=== PATIENT | male | born 1985 | race Caucasian/White ===

== ENCOUNTER 2016-04-15 15:59 | Emergency (ER) | payer OTHER ==
[2016-04-15 16:05] VITALS: BP 157/82; PULSE 107; TEMP 98.3; BMI 26.2
[2016-04-15] MEDS ORDERED: KETOROLAC TROMETHAMINE 60 MG/2 ML VIAL IM ONE (18:28)
[2016-04-15] MEDS ORDERED: KETOROLAC TROMETHAMINE 60 MG/2 ML VIAL ONE (18:31)
--- NOTE | 2016-04-15 18:44 | PDOC ---
History of Present Illness - General Chief Complaint: Injury Stated Complaint: FALL, LT ANKLE PAIN Time Seen by Provider: 04/15/16 16:39 History Source: Patient Exam Limitations: No Limitations - History of Present Illness Initial Comments: 04/15/16 18:39 twisted knee while playing with friend x 2 days ago and fell Occurred: reports: other (2 days ago) Severity: reports: mild Pain Location: reports: lower extremity. denies: none Method of Injury: Yes: direct blow Past History - Past Medical History Allergies/Adverse Reactions: Allergies Allergy/AdvReac Type Severity Reaction Status Date / Time No Known Allergies Allergy Verified 04/15/16 16:01 Home Medications: Ambulatory Orders NK [No Known Home Medication] 04/15/16 Other medical history: none - Immunization History Td Vaccination: No - Psycho/Social/Smoking Cessation Hx Anxiety: Yes Suicidal Ideation: No Smoking Status: No Smoking History: Current every day smoker Have you smoked in the past 12 months: Yes Number of Cigarettes Smoked Daily: 10 Information on smoking cessation initiated: Yes 'Breaking Loose' booklet given: 04/15/16 Hx Alcohol Use: No Drug/Substance Use Hx: No Review of Systems - Review of Systems Constitutional: No: Chills, Fever, Malaise Respiratory: No: Symptoms reported, Cough Cardiac (ROS): No: Symptoms Reported ABD/GI: No: Symptoms Reported : No: Symptoms Reported Musculoskeletal: Yes: Joint Pain. No: Joint Swelling Integumentary: No: Symptoms Reported *Physical Exam - Vital Signs Last Vital Signs Temp Pulse Resp BP Pulse Ox 98.3 F 107 H 18 157/82 100 04/15/16 16:03 04/15/16 16:03 04/15/16 16:03 04/15/16 16:03 04/15/16 16:03 - Physical Exam General Appearance: Yes: Apparent Distress. No: Appropriately Dressed HEENT: negative: TMs Normal, Pharynx Normal Neck: positive: Supple. negative: Tender, Rigid Respiratory/Chest: negative: Lungs Clear Musculoskeletal: positive: Other (tender to area medial knee, mild STS; pt very apprehensive to any movement; no obvious joint laxity) ED Treatment Course - RADIOLOGY Radiology Studies Ordered: Category Date Time Status KNEE 3 POS-LEFT [RAD] Stat Radiology 04/15/16 16:56 Completed Medical Decision Making - Medical Decision Making 04/15/16 18:41 04/15/16 18:44 will treat as a mild MCL strain *DC/Admit/Observation/Transfer Diagnosis at time of Disposition: Strain of right knee and leg Qualifiers: Encounter type: initial encounter Qualified Code(s): S86.911A - Strain of unspecified muscle(s) and tendon(s) at lower leg level, right leg, initial encounter - Discharge Dispostion Disposition: HOME Condition at time of disposition: Stable Admit: No - Patient Instructions Additional Instructions: wear splint x 2-3 days and use crutches and see dr reyes in office this week - Post Discharge Activity Work/School Note: Back to Work
== END 2016-04-15 19:03 | disposition home or self-care (01) ==
LOC: JERFT 15:59
PROC: 3E0233Z Introduction of Anti-inflammatory into Muscle, Percutaneous Approach (ICD-10-PCS; principal; 2016-04-15)
DX: S86.911A Strain of unspecified muscle(s) and tendon(s) at lower leg level, right leg, initial encounter (principal); X50.1XXA Overexertion from prolonged static or awkward postures, initial encounter; Y93.83 Activity, rough housing and horseplay; Y92.89 Other specified places as the place of occurrence of the external cause; Y99.8 Other external cause status
CPT/HCPCS: 73562-TC-LT; 96372; 99281-25

== ENCOUNTER 2016-06-19 17:19 | Emergency (ER) | payer OTHER ==
[2016-06-19] MEDS ORDERED: AMPICILLIN NA/SULBACTAM NA 3 GM in SODIUM CHLORIDE 100 ML IVPB ONE (17:29)
[2016-06-19] MEDS ORDERED: DIPHTH,PERTUSS(ACELL),TET 0.5 ML DISP.SYRIN IM ONE (17:29)
[2016-06-19] MEDS ORDERED: SODIUM CHLORIDE 1,000 ML IV STA (17:33)
--- NOTE | 2016-06-19 17:33 | PDOC ---
History of Present Illness - General History Source: Patient, Old Records Exam Limitations: No Limitations - History of Present Illness Initial Comments: 06/19/16 17:39 The patient is a 30 year old male, with no significant past medical history, who presents to the emergency department with a laceration to the 3rd knuckle of his right hand, pain to the right upper extremity and pain to the 3rd digit of the left hand s/p a dog attack just prior to presentation to the ED. The patient states that he was at the dog park with his dog when an unknown dog attacked his dog. The patient reports that he intervened in order to break up the dog fight and sustained his injuries in the process. The patient checked the unknown dogs rabies collar and reports that the unknown dog is up to date with its rabies vaccinations. The patient additionally reports that his dog is up to date with its rabies vaccinations. The patient then immediately proceeded to the ED for further evaluation. The patient denies any other trauma or injury. The patient is left hand dominant. Date of last Tetanus is unknown. Allergies: None reported. Past Surgical History: None reported. Social History: Current everyday smoker. Reports alcohol use. Denies drug use. <Vannessa Jefferson - Last Filed: 06/19/16 18:34> - General History Source: Patient, Old Records Exam Limitations: No Limitations <Divya Aguilar - Last Filed: 06/19/16 19:20> - General Chief Complaint: Bite Stated Complaint: DOG BITES Time Seen by Provider: 06/19/16 17:28 Past History <Vannessa Jefferson - Last Filed: 06/19/16 18:34> - Immunization History Td Vaccination: No - Psycho/Social/Smoking Cessation Hx Anxiety: Yes Suicidal Ideation: No Smoking Status: No Smoking History: Current every day smoker Have you smoked in the past 12 months: Yes Number of Cigarettes Smoked Daily: 10 'Breaking Loose' booklet given: 04/15/16 Hx Alcohol Use: No Drug/Substance Use Hx: No <Divya Aguilar - Last Filed: 06/19/16 19:20> - Past Medical History Allergies/Adverse Reactions: Allergies Allergy/AdvReac Type Severity Reaction Status Date / Time No Known Allergies Allergy Verified 06/19/16 17:20 Home Medications: Ambulatory Orders Amoxicillin/Potassium Clav [Augmentin 875-125 Tablet] 1 each PO BID #20 tablet 06/19/16 Review of Systems - Review of Systems Able to Perform ROS?: Yes Comments:: 06/19/16 17:42 GENERAL/CONSTITUTIONAL: No fever or chills. No weakness. HEAD, EYES, EARS, NOSE AND THROAT: No change in vision. No ear pain or discharge. No sore throat. CARDIOVASCULAR: No chest pain or shortness of breath. RESPIRATORY: No cough, wheezing, or hemoptysis. GASTROINTESTINAL: No nausea, vomiting, diarrhea or constipation. GENITOURINARY: No dysuria, frequency, or change in urination. MUSCULOSKELETAL: +Pain to the right upper extremity, pain to the 3rd digit of the left hand. No joint or muscle swelling. No neck or back pain. SKIN: +Laceration to the 3rd knuckle of the right hand. No rash. NEUROLOGIC: No headache, vertigo, loss of consciousness, or change in strength/ sensation. ENDOCRINE: No increased thirst. No abnormal weight change. HEMATOLOGIC/LYMPHATIC: No anemia, easy bleeding, or history of blood clots. ALLERGIC/IMMUNOLOGIC: No hives or skin allergy. <Vannessa Jefferson - Last Filed: 06/19/16 18:34> *Physical Exam - Vital Signs Last Vital Signs Temp Pulse Resp BP Pulse Ox 98.3 F 79 18 128/68 99 06/19/16 17:20 06/19/16 17:20 06/19/16 17:20 06/19/16 17:20 06/19/16 17:20 - Physical Exam Comments: 06/19/16 17:51 GENERAL: Awake, alert, and fully oriented, in no acute distress. HEAD: No signs of trauma. EYES: PERRLA, EOMI, sclera anicteric, conjunctiva clear. ENT: Auricles normal inspection, hearing grossly normal, nares patent, oropharynx clear without exudates. Moist mucosa. NECK: Normal ROM, supple, no lymphadenopathy, JVD, or masses. LUNGS: Breath sounds equal, clear to auscultation bilaterally. No wheezes, and no crackles. HEART: Regular rate and rhythm, normal S1 and S2, no murmurs, rubs or gallops. ABDOMEN: Soft, nontender, normoactive bowel sounds. No guarding, no rebound. No masses. MUSCULOSKELETAL: Left hand is tender to palpation at the distal phalanx with no skin breakage, neurovascularly intact. EXTREMITIES: Normal range of motion, no edema. No clubbing or cyanosis. No cords , erythema, or tenderness. NEUROLOGICAL: Cranial nerves II through XII intact. Normal speech, normal gait. SKIN: 1 cm laceration to the 3rd knuckle of the right hand, full ROM of the right hand with no active bleeding, neurovascularly intact. Right tricep region , there is ecchymosis and a small hematoma with no skin breakage. Warm, dry, normal turgor, no rashes noted. <Vannessa Jefferson - Last Filed: 06/19/16 18:34> Medical Decision Making - Medical Decision Making 06/19/16 17:30 30-year-old male who presents to the emergency department with a laceration to his right hand, pain to his left middle digit and pain to his right upper arm status post attacked by a dog. Repeat vaccine is up-to-date. Plan: 1. Plain films to rule out underlying fracture 2. Tetanus 3. Unasyn 4. No suture repair as this wound will be prone to infection 5. Will discharge on prophylactic antibioticsAugmentin 875 mg twice a day 10 days, wound check in 2 days, and I will advise the patient to return to the emergency department if the wound appears red, swollen, purulent drainage or any other signs of infection. 6. No rabies vaccination or prophylaxis as the patient says that he is certain that the animal who bit him was UTD with all vaccinations. 06/19/16 18:12 Addendum: The patient refused plain films stating that he felt that nothing was broken and since he would be paying out of pocket for the ER visit he did not want X-rays. I explained in detail the benefits to identifyication of a fracture in this clinical setting as well as the consequences of having undiagnosed fx. He understood and was willing to assume those risks. <Divya Aguilar - Last Filed: 06/19/16 19:20> *DC/Admit/Observation/Transfer - Attestations Scribe Attestion: 06/19/16 17:35 Documentation prepared by Vannessa Jefferson, acting as medical billing representative for Divya Aguilar MD. <Vannessa Jefferson - Last Filed: 06/19/16 18:34> - Discharge Dispostion Admit: No - Attestations Physician Attestion: 06/19/16 17:32 I, Dr. Divya Aguilar, attest that the scribes documentation that appears above has been prepared under my direction and personally reviewed by me in its entirety. I confirmed that the note above accurately reflects all work, treatment, procedures, and medical decision-making performed by me. <Divya Aguilar - Last Filed: 06/19/16 19:20> Diagnosis at time of Disposition: Laceration of right hand, Contusion of arm, right - Discharge Dispostion Disposition: HOME Condition at time of disposition: Stable - Prescriptions Prescriptions: Amoxicillin/Potassium Clav [Augmentin 875-125 Tablet] 1 each PO BID #20 tablet - Patient Instructions Printed Discharge Instructions: How to Care for a Domestic Animal Bite, DI for Animal Bites Additional Instructions: You have sustained a dog bite to your hand. These wounds are notoriously prone to infection and therefore you must take antibitoics to prevent this from occurring. In addition, your wound was purposefully not sutured and should be left to heal on its own. You have received an intravenous dose of antibiotics in the ED and are being prescribed Augmentin 875-take one tablet twice daily for 10 days. Please return to the ED or go to your primary care physician in 2 days so that you may have your wound re-examined for signs of infection. Please return to the ED sooner if you notice that the wound appears reddened, more swollen, purulent drainage from the wound, fever, difficulty moving your fingers or any other concerning signs or symptoms.
[2016-06-19 17:34] VITALS: BP 128/68; PULSE 79; TEMP 98.3; BMI 25.7
[2016-06-19] MEDS ORDERED: AMPICILLIN NA/SULBACTAM NA 3 GM VIAL ONE (17:55)
== END 2016-06-19 19:27 | disposition home or self-care (01) ==
LOC: FER 17:19
PROC: 3E03329 Introduction of Other Anti-infective into Peripheral Vein, Percutaneous Approach (ICD-10-PCS; principal; 2016-06-19)
PROC: 3E0337Z Introduction of Electrolytic and Water Balance Substance into Peripheral Vein, Percutaneous Approach (ICD-10-PCS; 2016-06-19)
PROC: 3E0234Z Introduction of Serum, Toxoid and Vaccine into Muscle, Percutaneous Approach (ICD-10-PCS; 2016-06-19)
DX: S61.213A Laceration without foreign body of left middle finger without damage to nail, initial encounter (principal); S61.253A Open bite of left middle finger without damage to nail, initial encounter; W54.0XXA Bitten by dog, initial encounter; Y93.89 Activity, other specified; Y92.830 Public park as the place of occurrence of the external cause
CPT/HCPCS: 90471; 90715; 96361; 96365; 99282-25

== ENCOUNTER 2016-09-07 10:56 | Emergency (ER) | payer OTHER ==
[2016-09-07 11:04] VITALS: BP 137/80; PULSE 111; TEMP 97.8; BMI 26.4
[2016-09-07] MEDS ORDERED: OXYCODONE/APAP 5/325MG COMBO TABLET PO ONE (12:16)
--- NOTE | 2016-09-07 12:24 | PDOC ---
History of Present Illness - General Chief Complaint: Pain, Acute Stated Complaint: RT ARM INJURY Time Seen by Provider: 09/07/16 11:48 History Source: Patient Exam Limitations: No Limitations - History of Present Illness Initial Comments: 09/07/16 14:27 My chief complaint: Fall last night down stairs has pain above rt. TMJ, rt. elbow, rt hand with swelling and bruising, laceration rt. ear History of present illness: Patient is a 31-year-old male with no significant medical history here today after falling down the stairs last night when he was running after his dog that was trying to run out of the house falling forward patient hit the right side of his head right elbow and right wrist and hand. Patient denies any loss consciousness, any change in vision level of alertness dizziness hemotympanum nausea or vomiting. Patient has swelling to his right elbow and right hand over first and second metacarpal area with bruising. Patient has full range of motion of all digits except for the thumb laterally. Patient is unable to straighten his right elbow totally. Patient is up-to-date with tetanus. Patient reports the pain is worse in his right elbow and is currently an 8 out of 10 pain in right elbow worsens when trying to straighten it or with movement of his right hand. Patient is right hand dominant. Patient denies any numbness of his right arm elbow area or hand. Patient reports having slight pain to his area right above his right TMJ with opening of his mouth however is able to open mouth fully and does not have any trismus. Patient has a superficial laceration to his right helix of the ear. He denies any neck pain , back pain, or any other injuries.Pt.is left hand dominant 09/07/16 14:31 09/07/16 23:09 Occurred: reports: yesterday Severity: reports: moderate (slightly superior to rt. TMJ pain ), severe (right elbow, right wrist, hand) Pain Location: reports: face (superior to rt. TMG), upper extremity (rt. elbow, rt. medial wrist, hand rt. thumb, rt. 1st mcp jt, 2nd mcpt jt, scaphoid, trapezoid, trapezium ) Method of Injury: Yes: fall Modifying Factors: improves with: None Loss of Consciousness: no loss of consciousness Associated Symptoms (Fall): other (pain superior to rt. TMJ) Past History - Past Medical History Allergies/Adverse Reactions: Allergies Allergy/AdvReac Type Severity Reaction Status Date / Time No Known Allergies Allergy Verified 09/07/16 11:04 Home Medications: Ambulatory Orders Oxycodone HCl/Acetaminophen [Percocet 5-325 mg Tablet] 1 tab PO Q6H PRN #11 tablet MDD 4 09/07/16 - Immunization History Td Vaccination: No Immunization Up to Date: No - Psycho/Social/Smoking Cessation Hx Anxiety: Yes Suicidal Ideation: No Smoking Status: No Smoking History: Current every day smoker Have you smoked in the past 12 months: Yes Number of Cigarettes Smoked Daily: 10 Information on smoking cessation initiated: Yes 'Breaking Loose' booklet given: 09/07/16 Hx Alcohol Use: No Drug/Substance Use Hx: No Substance Use Type: Alcohol Review of Systems - Review of Systems Able to Perform ROS?: Yes Constitutional: No: Symptoms Reported HEENTM: No: Symptoms Reported Respiratory: No: Symptoms reported Cardiac (ROS): No: Symptoms Reported ABD/GI: No: Symptoms Reported : No: Symptoms Reported Musculoskeletal: Yes: Joint Pain (rt. elbow, rt. 1st, 2nd metacarpa rt thumb , rt. scaphoid, trapezoid, trapezium, superior to rt. TMJ,), Joint Swelling (rt. elbow, rt. 1st, 2nd metacarpal, rt.hand over scaphoid, trapezoid, trapezium) Integumentary: Yes: Bruising (rt. hand dorsal and palm over medial aspect), Other (superficial laceration rt. helix superfical ) Neurological: No: Symptoms reported *Physical Exam - Vital Signs Last Vital Signs Temp Pulse Resp BP Pulse Ox 97.8 F 111 H 20 137/80 96 09/07/16 10:59 09/07/16 10:59 09/07/16 10:59 09/07/16 10:59 09/07/16 10:59 - Physical Exam General Appearance: Yes: Appropriately Dressed HEENT: positive: EOMI, PHIL, Normal ENT Inspection, Other (no trismus) Neck: negative: Tender, Lymphadenopathy (R), Lymphadenopathy (L), Rigidity, Tender lateral, Tender midline Respiratory/Chest: positive: Lungs Clear, Normal Breath Sounds. negative: Chest Tender, Respiratory Distress Cardiovascular: positive: Regular Rhythm, Regular Rate, S1, S2 Comments:: 09/07/16 12:34 rt. radial pulse 2+ Musculoskeletal: positive: Normal Inspection, Other (tender proximal to rt. TMJ) . negative: CVA Tenderness, CVA Tenderness (R), CVA Tenderness (L), Decreased Range of Motion, Vertebral Tenderness Extremity: positive: Normal Capillary Refill, Tender (rt. elbow, rt. dorsal, palmar hand over 1st, 2nd metacarpal, rt. thumb, rt hand over scaphoid, trapezium, trapezoid, rt. elbow ), Swelling. negative: Normal Inspection (rt. hand medial aspect swelling over 1st and 2nd metacarpal, over rt scaphoid, trapezois, trapezium, and bruising dorsal and palmar aspect), Normal Range of Motion (rt. elbow and rt. thumb decreased range of motion with flexion and extension ) Integumentary: positive: Ecchymosis (rt. hand dorsal/plantar aspect over 1st, 2nd mcp jt, rt. thumb, rt. scaphoid, trapezoid, trapezium) Neurologic: positive: Normal Response, Respond to painful stimul (rt. hand all digits, rt. elbow ), Other (decreased motor strength rt. elbow, rt. hand ). negative: Numbness, Sensory Deficit (rt.upper, elbow, forearm, rt. hand and all digits) Procedures - Consent Consent obtained: From Patient - Splinting Splint Location: Left: Forearm Pre-Proc Neuro Vasc Exam: normal Hand-Made Type: orthoglass Splint Type: Yes: Short Arm (right) Post-Proc Neuro Vasc Exam: normal Luciano Bandage: 3" Sling: Yes (right ) - Laceration/Wound Repair Right Ear Wound Length: to 2.5 cm Wound Explored: clean Wound's Depth, Shape: linear Irrigated w/ Saline: Yes Betadine Prep: Yes Wound Repaired With: Dermabond (right helix superfical ) Number of Sutures: 0 ED Treatment Course - RADIOLOGY Radiology Studies Ordered: Category Date Time Status ELBOW-RIGHT [RAD] Stat Radiology 09/07/16 12:16 Ordered FOREARM- RIGHT [RAD] Stat Radiology 09/07/16 12:16 Ordered WRIST W/HAND-RIGHT* [RAD] Stat Radiology 09/07/16 12:16 Ordered Medical Decision Making - Medical Decision Making 09/07/16 14:31 Patient is a 31-year-old male with no significant medical history here today after falling down the stairs last night when he was running after his dog that was trying to run out of the house falling forward patient hit the right side of his head right elbow and right wrist and hand. Patient denies any loss consciousness, any change in vision level of alertness dizziness hemotympanum nausea or vomiting. Patient has swelling to his right elbow and right hand over first and second metacarpal area with bruising. Patient has full range of motion of all digits except for the thumb laterally. Patient is unable to straighten his right elbow totally. Patient is up-to-date with tetanus. Patient reports the pain is worse in his right elbow and is currently an 8 out of 10 pain in right elbow worsens when trying to straighten it or with movement of his right hand. Patient is right hand dominant. Patient denies any numbness of his right arm elbow area or hand. Patient reports having slight pain to his area right above his right TMJ with opening of his mouth however is able to open mouth fully and does not have any trismus. Patient has a superficial laceration to his right helix of the ear. He denies any neck pain, back pain, or any other injuries. R/O facial fracture R/O rt. elbow fracture R/O rt. wrist/hand fracture Fall on stairs rt. ear helix superfical laceration rt. elbow contusion rt. hand contusion PLAN: Xray rt. wrist/hand no fracture noted per Dr. Wray Xray rt. elbow no fracture noted per Dr. Wray Xray rt. forearm negative for fracture laceration rt. ear helix follow up with orthopedist CT without contrast of face no fracture noted per verbal from Dr. Cervantes percocet 5mg/325 mg po now than every 6 hrs prn pain # 11 posterior orthoglass splint applied rt. arm, sling applied 09/07/16 15:41 Search Terms: art Hatch, 1985 Search Date: 09/07/2016 03:51:03 PM T This report was requested by: Jacquelyn Machado | Reference #: [id number] Others' Prescriptions Patient Name: Art Hatch Date: 1985 Address: [address] [place] [address] Sex: Male Rx Written Rx Dispensed Drug Quantity Days Supply Prescriber Name 01/25/2016 01/25/2016 dextroamp-amphet er 10 mg cap 30 30 Melissa Gavin MD 01/25/2016 01/25/2016 dextroamp-amphet er 30 mg cap 30 30 Romaine, *DC/Admit/Observation/Transfer Diagnosis at time of Disposition: Face pain Contusion of elbow, right Qualifiers: Encounter type: initial encounter Qualified Code(s): S50.01XA - Contusion of right elbow, initial encounter Contusion of hand Qualifiers: Encounter type: initial encounter Laterality: right Qualified Code(s): S60.221A - Contusion of right hand, initial encounter Laceration of external ear Qualifiers: Encounter type: initial encounter Laterality: right Qualified Code(s): S01.311A - Laceration without foreign body of right ear, initial encounter Fall Qualifiers: Encounter type: initial encounter Qualified Code(s): W19.XXXA - Unspecified fall, initial encounter - Discharge Dispostion Disposition: HOME Condition at time of disposition: Stable - Prescriptions Prescriptions: Oxycodone HCl/Acetaminophen [Percocet 5-325 mg Tablet] 1 tab PO Q6H PRN #11 tablet MDD 4 PRN Reason: Severe Pain - Referrals Referrals: Mackenzie Stanton MD [Primary Care Provider] - Kristofer French MD [Staff Physician] - - Patient Instructions Additional Instructions: Continue to apply ice to right elbow and right hand every hour for 10-15 minutes while awake today and tomorrow keep Ortho-Glass splint on right arm and use sling take sling off at night and elevate arm on pillow X-rays today of right elbow forearm and hand were negative for fractures Your cat scan of face was negative for any facial fractures Follow-up with orthopedist in 2 days for further evaluation You may take ibuprofen as needed as directed by degreasing solution reclaimer for pain Return to emergency room if any numbness of right arm hand worsening pain or if any severe headache nausea, vomiting, change in vision or level of alertness Patient voiced understanding of discharge instructions and all questions were answered - Post Discharge Activity Work/School Note: Back to Work
[2016-09-07] MEDS ORDERED: OXYCODONE/APAP 5/325MG COMBO TABLET ONE (12:27)
== END 2016-09-07 16:07 | disposition home or self-care (01) ==
LOC: JERFT 10:56
PROC: 2W3CX1Z Immobilization of Right Lower Arm using Splint (ICD-10-PCS; principal; 2016-09-07)
DX: S01.311A Laceration without foreign body of right ear, initial encounter (principal); S50.01XA Contusion of right elbow, initial encounter; S60.221A Contusion of right hand, initial encounter; R51 Headache
CPT/HCPCS: 29105; 70486-TC; 73070-TC-RT; 73090-TC-RT; 73110-TC-RT; 73130-TC-RT; 99281-25

== ENCOUNTER 2017-07-06 17:10 | Emergency (ER) | payer SELFPAY ==
[2017-07-06 17:26] VITALS: BP 163/80; PULSE 80; TEMP 98; BMI 26.4
[2017-07-06] MEDS ORDERED: KETOROLAC TROMETHAMINE 60 MG/2 ML VIAL IM ONE (17:48)
[2017-07-06] MEDS ORDERED: diazePAM 5 MG TABLET PO ONE (17:48)
[2017-07-06] MEDS ORDERED: diazePAM 5 MG TABLET ONE (17:51)
[2017-07-06] MEDS ORDERED: KETOROLAC TROMETHAMINE 60 MG/2 ML VIAL ONE (17:51)
--- NOTE | 2017-07-06 17:54 | PDOC ---
History of Present Illness - General History Source: Patient Exam Limitations: No Limitations - History of Present Illness Initial Comments: 07/06/17 19:18 The patient is a 31 year old male, with no significant past medical history, who presents to the emergency department with, 2 days of lower back pain. As per patient, his job involves a lot of lifting, while doing so he reports hearing a pop in his lower back which was accompanied by significant pain. He describes his pain as spastic, and localized to the lumbar region of his back and occasionally radiating up his back. No radiation down his legs. Secondary to his symptoms, he reports difficulty ambulating due to the pain. He reports taking 600mg of Ibuprofen at 10am, with minimal relief. He reports injuring the same area of his back in the remote past. He denies any recent fevers, chills, headache or dizziness. He denies any recent nausea, vomit, diarrhea or constipation. He denies any recent chest pain or shortness of breath. He denies any recent dysuria, frequency, urgency or hematuria. No urinary or bow3el incontinence. Allergies: NKA Past surgical history: None reported. Social History: Current smoker (5 cigarettes per day). Denies EtOH use and recreational drug use. Primary Care Physician: Dr. Mackenzie Stanton <Noe Londono - Last Filed: 07/06/17 19:18> <Silvestre Garcia - Last Filed: 07/10/17 09:12> - General Chief Complaint: Back Pain Stated Complaint: RIGHT LOWER BACK PAIN Time Seen by Provider: 07/06/17 17:29 Past History <Noe Londono - Last Filed: 07/06/17 19:18> - Past Medical History COPD: No - Immunization History Td Vaccination: No Immunization Up to Date: No - Suicide/Smoking/Psychosocial Hx Smoking Status: No Smoking History: Current every day smoker Have you smoked in the past 12 months: Yes Number of Cigarettes Smoked Daily: 10 Information on smoking cessation initiated: Yes 'Breaking Loose' booklet given: 07/06/17 Hx Alcohol Use: No Drug/Substance Use Hx: No Substance Use Type: None <Silvestre Garcia - Last Filed: 07/10/17 09:12> - Past Medical History Allergies/Adverse Reactions: Allergies Allergy/AdvReac Type Severity Reaction Status Date / Time No Known Allergies Allergy Verified 07/06/17 17:20 Home Medications: Ambulatory Orders Diclofenac Sodium [Voltaren -] 75 mg PO BID PRN #20 tablet. 07/06/17 Oxycodone HCl/Acetaminophen [Percocet 5-325 mg Tablet] 1 tab PO Q6H PRN #12 tablet MDD 4 tabs 07/06/17 Tizanidine HCl 2 mg PO TID PRN #20 tablet 07/07/17 Review of Systems - Review of Systems Able to Perform ROS?: Yes Comments:: 07/06/17 19:18 CONSTITUTIONAL: No reported: Fever, Chills, Diaphoresis, Generalized Weakness, Malaise, Loss of Appetite HEENT: No reported: Rhinorrhea, Nasal Congestion, Throat Pain, Throat Swelling, Difficulty Swallowing, Mouth Swelling, Ear Pain, Eye Pain, Visual Changes CARDIOVASCULAR: No reported: Chest Pain, Syncope, Palpitations, Irregular Heart Rate, Lightheadedness, Peripheral Edema RESPIRATORY: No reported: Cough, Shortness of Breath, SOB with Exertion, Orthopnea, Wheezing , Stridor, Hemoptysis GASTROINTESTINAL: No reported: Abdominal pain, Abdominal Distension, Nausea, Vomiting, Diarrhea, Constipation, Melena, Hematochezia GENITOURINARY: No reported: Dysuria, Frequency, Urgency, Hesitancy, Flank Pain, Genital Pain MUSCULOSKELETAL: Lower back pain. No reported: Myalgia, Arthralgia, Joint Swelling, Neck Pain SKIN: No reported: Rash, Itching, Pallor HEMEATOLOGIC/IMMUNOLOGIC: No reported: Easy Bleeding, Easy Bruising, Lymphadenopathy, Frequent infections ENDOCRINE: No reported: Unexplained Weight Gain, Unexplained Weight Loss, Heat Intolerance , Cold Intolerance NEUROLOGIC: No reported: Headache, Focal Weakness, Paresthesias, Vertigo, Lightheadedness, Unsteady Gait, Seizure, Mental Status Changes, Incontinence PSYCHIATRIC: No reported: Anxiety, Depression All Other Systems: Reviewed and Negative <Noe Londono - Last Filed: 07/06/17 19:18> *Physical Exam - Vital Signs Last Vital Signs Temp Pulse Resp BP Pulse Ox 98.0 F 80 16 163/80 100 07/06/17 17:13 07/06/17 17:13 07/06/17 17:13 07/06/17 17:13 07/06/17 17:13 - Physical Exam Comments: 07/06/17 19:19 GENERAL: The patient is awake and alert,, Nontoxic - in no acute distress. HEAD: Normocephalic, atraumatic. EYES: extraocular movements intact, sclera anicteric, conjunctiva clear. ENT: Normal voice, Moist mucous membranes. NECK: Normal range of motion, supple LUNGS: Breath sounds equal, clear to auscultation bilaterally. No wheezes, no rhonchi, no rales. HEART: Regular rate and rhythm, without murmur, rub or gallop. ABDOMEN: Soft, nontender, No guarding, no rebound.No CVA tenderness BACK: No focal midlinne tenderness, mild diffuse lower back tenderness, +spasms/ hypertrophy of R lower back EXTREMITIES: Normal range of motion, no edema. No cyanosis. No erythema, or tenderness. NEUROLOGICAL: No facial asymmetry, Normal speech, hip flexion/extension, platnar flexion/extension, sensation intact/symmetric in the lower extremities. PSYCH: Normal mood, normal affect. SKIN: Warm, Dry, normal turgor, <Noe Londono - Last Filed: 07/06/17 19:18> - Vital Signs Last Vital Signs Temp Pulse Resp BP Pulse Ox 98.0 F 80 16 163/80 100 07/06/17 17:13 07/06/17 17:13 07/06/17 17:13 07/06/17 17:13 07/06/17 17:13 <Silvestre Garcia - Last Filed: 07/10/17 09:12> ED Treatment Course - Medications Given in the ED: ED Medications Discontinued Medications Generic Name Dose Route Start Last Admin Trade Name Freq PRN Reason Stop Dose Admin Acetaminophen 975 mg 07/06/17 18:44 07/06/17 18:52 Tylenol - PO 07/06/17 18:45 975 mg ONCE ONE Administration Diazepam 5 mg 07/06/17 17:48 07/06/17 17:55 Valium - PO 07/06/17 17:49 5 mg ONCE ONE Administration Ketorolac Tromethamine 60 mg 07/06/17 17:48 07/06/17 17:58 Toradol Injection - IM 07/06/17 17:49 60 mg ONCE ONE Administration <Noe Londono - Last Filed: 07/06/17 19:18> Medical Decision Making - Medical Decision Making 07/06/17 17:51 31y M no pmhx presents with R lower back pain that started as he was pulling a heavy cable at work yesterday. Pt notes the pain is spasm like, intermittently radiates up his back, not associated with any numbness/tingling/weakness, urinary or bowel incontinence, fever/chills. on exam no signs of midline bony tenderness, +significant diffuse R back pain/ spasm suspect msule spasm no red flags or neurologic symptoms no signs or symptoms of spinal epidural abcess will give toradol/valium will reassess 07/06/17 19:31 pt signed out to dr. rivera to reassess <Silvestre Garcia - Last Filed: 07/10/17 09:12> *DC/Admit/Observation/Transfer - Attestations Scribe Attestion: 07/06/17 19:19 Documentation prepared by Noe Londono, acting as medical aides teacher for Silvestre Garcia MD. <Noe Londono - Last Filed: 07/06/17 19:18> <Silvestre Garcia - Last Filed: 07/10/17 09:12> Diagnosis at time of Disposition: Low back pain - Discharge Dispostion Disposition: HOME Condition at time of disposition: Stable - Prescriptions Prescriptions: Diclofenac Sodium [Voltaren -] 75 mg PO BID PRN #20 tablet. PRN Reason: Back Pain Oxycodone HCl/Acetaminophen [Percocet 5-325 mg Tablet] 1 tab PO Q6H PRN #12 tablet MDD 4 tabs PRN Reason: Severe Pain Tizanidine HCl 2 mg PO TID PRN #20 tablet PRN Reason: Muscle Spasms - Referrals Referrals: Mackenzie Stanton MD [Primary Care Provider] - - Patient Instructions Printed Discharge Instructions: Low Back Pain Additional Instructions: avoid strenuous activity involving lifting/pushing/pulling for next week Diclofenac 75mg twice a day for pain(take with food) Tizanidine 2 mg up to 3 times a day for muscle spasms(This medication will make you sleepy) Percocet 5/325 as needed for severe pain(this medication will make you sleepy) no work tomorrow followup with your doctor within 3-4 days - Post Discharge Activity Forms/Work/School Notes: Back to Work
[2017-07-06] MEDS ORDERED: ACETAMINOPHEN 325 MG TABLET (FP) PO ONE (18:44)
[2017-07-06] MEDS ORDERED: ACETAMINOPHEN 325 MG TABLET (FP) ONE (18:47)
--- NOTE | 2017-07-06 20:08 | PDOC ---
*Physical Exam - Vital Signs Last Vital Signs Temp Pulse Resp BP Pulse Ox 98.0 F 80 16 163/80 100 07/06/17 17:13 07/06/17 17:13 07/06/17 17:13 07/06/17 17:13 07/06/17 17:13 ED Treatment Course - Medications Given in the ED: ED Medications Discontinued Medications Generic Name Dose Route Start Last Admin Trade Name Denis PRN Reason Stop Dose Admin Acetaminophen 975 mg 07/06/17 18:44 07/06/17 18:52 Tylenol - PO 07/06/17 18:45 975 mg ONCE ONE Administration Diazepam 5 mg 07/06/17 17:48 07/06/17 17:55 Valium - PO 07/06/17 17:49 5 mg ONCE ONE Administration Ketorolac Tromethamine 60 mg 07/06/17 17:48 07/06/17 17:58 Toradol Injection - IM 07/06/17 17:49 60 mg ONCE ONE Administration Progress Note - Progress Note Progress Note: Care of this patient received from Dr Garcia. The patient remains in significant pain after Toradol 60mg IM, ValiumPO, Tylenol 1 gram PO. Patient given 2 tabs of Percocet 5/325 PO Patient reports significant relief in pain after Percocet. The patient was able to ambulate without significant discomfort and was discharged in the company of his mother. *DC/Admit/Observation/Transfer Diagnosis at time of Disposition: Low back pain Qualifiers: Chronicity: acute Back pain laterality: right Sciatica presence: without sciatica Qualified Code(s): M54.5 - Low back pain - Discharge Dispostion Disposition: HOME Condition at time of disposition: Stable - Prescriptions Prescriptions: Diclofenac Sodium [Voltaren -] 75 mg PO BID PRN #[address] TELLEZ Reason: Back Pain Oxycodone HCl/Acetaminophen [Percocet 5-325 mg Tablet] 1 tab PO Q6H PRN #12 tablet MDD 4 tabs PRN Reason: Severe Pain - Referrals Referrals: Mackenzie Stanton MD [Primary Care Provider] - - Patient Instructions Printed Discharge Instructions: Low Back Pain Additional Instructions: avoid strenuous activity involving lifting/pushing/pulling for next week Diclofenac 75mg twice a day for pain(take with food) Tizanidine 2 mg up to 3 times a day for muscle spasms(This medication will make you sleepy) Percocet 5/325 as needed for severe pain(this medication will make you sleepy) no work tomorrow followup with your doctor within 3-4 days - Post Discharge Activity Forms/Work/School Notes: Back to Work
== END 2017-07-06 21:23 | disposition home or self-care (01) ==
LOC: FER 17:10
PROC: 3E0233Z Introduction of Anti-inflammatory into Muscle, Percutaneous Approach (ICD-10-PCS; principal; 2017-07-06)
DX: M54.5 Low back pain (principal); F17.210 Nicotine dependence, cigarettes, uncomplicated
CPT/HCPCS: 99282-25